=== PATIENT | male | born 1955 | race African-American/Black ===

== ENCOUNTER 2019-06-19 06:04 | Inpatient (IN) | payer MEDICAID ==
[~2019-06-19] VITALS: Ht 182.9 cm; Wt 96.5 kg
[~2019-06-19 06:04] MED LIST: NOR10T
[2019-06-19] MEDS ORDERED: METOPROLOL TARTRATE 25 MG TAB PO ONE ×2 (06:15→22:00)
[2019-06-19] MEDS ORDERED: ATORVASTATIN 20 MG TAB PO ONE (06:15)
[2019-06-19 07:23] LABS: Albumin 3.4 g/dL (3.4-5.0); Calcium 8.6 mg/dL (8.5-10.1); Potassium 3.2 mmol/L (3.5-5.1)
[2019-06-19 07:27] LABS: Basophils # (auto) 0 uL; Basophils % (auto) 0.4 % (0.0-2.0); Eosinophils # (auto) 0.2 uL; Eosinophils % (auto) 2.2 % (0.0-7.0); Hematocrit 45.6 % (41.0-53.0); Hemoglobin 15.4 g/dL (13.5-17.5); Lymphocytes # (auto) 3.1 uL; Lymphocytes % (auto) 38.1 % (10.0-50.0); Mean Corpuscular Hemoglobin 31.7 pg (28.0-32.0); Mean Corpuscular Hgb Conc. 33.6 g/dL (32.0-36.0); Mean Corpuscular Volume 94.4 fL (80.0-100.0); Monocytes % (auto) 11.9 % (0.0-12.0); Neutrophils # (auto) 3.9 uL; Neutrophils % (auto) 47.4 % (37.0-80.0); Nucleated Red Blood Cells % 0.1 %; Platelet Count (auto) 253 10^3/uL (140-450); Red Blood Cells 4.84 10^6/uL (4.5-5.90); Red Cell Distribution Width 14.4 % (11.8-14.3); White Blood Cell 8.1 10^3/uL (4.4-10.8)
[2019-06-19 07:28] LABS: Bilirubin, Total 0.3 mg/dL (0.2-1.0); Total Protein 8.2 g/dL (6.4-8.2)
[2019-06-19 07:47] LABS: INR 0.98 (0.9-1.15); Partial Thromboplastin Time 25.9 sec (23.64-32.05)
[2019-06-19] MEDS ORDERED: HEPARIN SODIUM (PORCINE) 5000 UNITS/ML 1ML VIAL IV ONE (08:15)
[2019-06-19] MEDS ORDERED: CLOPIDOGREL BISULFATE 75 MG TAB PO ONE ×2 (08:45→10:30)
[2019-06-19] MEDS ORDERED: ASPirin 325 MG TAB PO ONE (10:45)
[2019-06-19] MEDS ORDERED: TEMAZEPAM 15 MG CAP PO PRN (11:00)
[2019-06-19] MEDS ORDERED: NITROGLYCERIN 0.4 MG SL TAB SL PRN (11:00)
[2019-06-19] MEDS ORDERED: traMADol HCL 50 MG TAB PO PRN (11:00)
[2019-06-19] MEDS ORDERED: MORPHINE SULF INJ 2 MG/ML SYRINGE 1ML IV PRN (11:00)
[2019-06-19] MEDS ORDERED: ACETAMINOPHEN 500 MG TAB PO PRN (11:00)
[2019-06-19] MEDS ORDERED: LACTULOSE 20Gm/30ML SOLN PO PRN (11:00)
[2019-06-19] MEDS ORDERED: PROMETHAZINE HCL 25 MG/ML 1ML IV PRN (11:00)
[2019-06-19] MEDS: HEPARIN DRIP/D5W 100UNITS/ML 250 ML IV SCH (11:31)
[2019-06-19] MEDS: SODIUM CHLORIDE 0.9% 1,000 ML IV SCH (11:32)
[2019-06-19 12:08] LABS: INR 1.07 (0.9-1.15); Partial Thromboplastin Time 33.7 sec (23.64-32.05)
[2019-06-19] MEDS ORDERED: chlordiazePOXIDE HCL 25 MG CAP PO PRN (12:45)
[2019-06-19] MEDS ORDERED: THIAMINE 100mg/ml INJ (200mg/2ml VIAL) IV ONE (12:45)
[2019-06-19 16:46] LABS: Amphetamine Screen, Urine POSITIVE (NEGATIVE); Barbiturate Scree,Urine NEGATIVE (NEGATIVE); Benzodiazephine Screen, Urine NEGATIVE (NEGATIVE); Cannabinoid Screen, Urine NEGATIVE (NEGATIVE); Cocaine Screen, Urine POSITIVE (NEGATIVE); Opiate Scree,Urine NEGATIVE (NEGATIVE); Phencyclidine Screen, Urine NEGATIVE (NEGATIVE)
[2019-06-19] MEDS ORDERED: HEPARIN SODIUM (PORCINE) 5000 UNITS/ML 1ML VIAL ONE (17:53)
[2019-06-19] MEDS: chlordiazePOXIDE HCL 5 MG CAP PO SCH (18:03)
[2019-06-19 18:30] LABS: INR 1.07 (0.9-1.15)
[2019-06-19] MEDS ORDERED: POTASSIUM CHL 20MEQ/100ML 200 ML IV ONE (21:14)
[2019-06-19] MEDS: POTASSIUM CHL 20MEQ/100ML 100 ML IV SCH (21:23)
[2019-06-19] MEDS ORDERED: ENOXAPARIN SOD 100 MG/1 ML SYRINGE SC SCH (22:00)
[2019-06-19] MEDS: ATORVASTATIN 20 MG TAB PO SCH (22:20)
[2019-06-19 22:23] VITALS: BP 137/93
[2019-06-19 23:17] LABS: INR 1.07 (0.9-1.15)
[2019-06-19 23:30] LABS: Partial Thromboplastin Time 96.8 sec (23.64-32.05)
[2019-06-20] VITALS: BP 109/69
[2019-06-20] MEDS: chlordiazePOXIDE HCL 5 MG CAP PO SCH ×5 (00:51→23:35)
[2019-06-20] MEDS: POTASSIUM CHL 20MEQ/100ML 100 ML IV SCH (00:52)
[2019-06-20] MEDS: SODIUM CHLORIDE 0.9% 1,000 ML IV SCH ×3 (00:52→21:23)
[2019-06-20 04:00] VITALS: BP 106/70
[2019-06-20 06:11] LABS: INR 1.04 (0.9-1.15)
[2019-06-20 06:14] LABS: Albumin 2.8 g/dL (3.4-5.0); BUN/Creatinine Ratio 24.7; Bilirubin, Total 0.2 mg/dL (0.2-1.0); Calcium 8.2 mg/dL (8.5-10.1); Total Protein 6.6 g/dL (6.4-8.2)
[2019-06-20 06:37] LABS: Basophils # (auto) 0 uL; Basophils % (auto) 0.4 % (0.0-2.0); Eosinophils # (auto) 0.2 uL; Eosinophils % (auto) 2.8 % (0.0-7.0); Hematocrit 40.6 % (41.0-53.0); Hemoglobin 13.5 g/dL (13.5-17.5); Lymphocytes # (auto) 3.2 uL; Lymphocytes % (auto) 38.1 % (10.0-50.0); Mean Corpuscular Hemoglobin 31.9 pg (28.0-32.0); Mean Corpuscular Hgb Conc. 33.2 g/dL (32.0-36.0); Mean Corpuscular Volume 96.1 fL (80.0-100.0); Monocytes # (auto) 0.9 uL; Monocytes % (auto) 10.8 % (0.0-12.0); Neutrophils # (auto) 4.1 uL; Neutrophils % (auto) 47.9 % (37.0-80.0); Nucleated Red Blood Cells % 0.1 %; Platelet Count (auto) 197 10^3/uL (140-450); Red Blood Cells 4.22 10^6/uL (4.5-5.90); Red Cell Distribution Width 14.4 % (11.8-14.3); White Blood Cell 8.5 10^3/uL (4.4-10.8)
[2019-06-20 08:00] VITALS: BP 128/82
[2019-06-20] MEDS: HEPARIN DRIP/D5W 100UNITS/ML 250 ML IV SCH (10:00)
[2019-06-20] MEDS: ASPirin 81 mg TAB PO SCH (10:00)
[2019-06-20] MEDS: NITROGLYCERIN 0.2MG/HR TOPICAL PATCH TD SCH (10:00)
[2019-06-20] MEDS: CLOPIDOGREL BISULFATE 75 MG TAB PO SCH (10:01)
[2019-06-20] MEDS: METOPROLOL TARTRATE 25 MG TAB PO SCH ×2 (10:01→21:29)
[2019-06-20] MEDS: THIAMINE 100mg/ml INJ (200mg/2ml VIAL) IV SCH (10:01)
[2019-06-20 11:16] LABS: INR 1.05 (0.9-1.15); Partial Thromboplastin Time 51.8 sec (23.64-32.05)
[2019-06-20 12:00] VITALS: BP 103/63
[2019-06-20] MEDS: FOLIC ACID 1 MG, MULTIPLE VITAMIN 10 ML, MAGNESIUM SULF SDV 50% 8 MEQ, THIAMINE INJ 100... INJ SCH ×5 (13:14)
[2019-06-20 16:00] VITALS: BP 116/70
[2019-06-20 17:33] LABS: INR 1.03 (0.9-1.15)
[2019-06-20 20:00] VITALS: BP 130/81
[2019-06-20] MEDS: ATORVASTATIN 20 MG TAB PO SCH (21:23)
[2019-06-20 22:45] LABS: INR 1.05 (0.9-1.15); Partial Thromboplastin Time 52.1 sec (23.64-32.05)
[2019-06-21] VITALS (7 sets, daily range): BP systolic 105–146; BP diastolic 67–99
[2019-06-21] MEDS: chlordiazePOXIDE HCL 5 MG CAP PO SCH ×4 (05:12→23:44)
[2019-06-21] MEDS: HEPARIN DRIP/D5W 100UNITS/ML 250 ML IV SCH (05:14)
[2019-06-21 05:59] LABS: Basophils # (auto) 0 uL; Basophils % (auto) 0.4 % (0.0-2.0); Eosinophils # (auto) 0.2 uL; Eosinophils % (auto) 2.5 % (0.0-7.0); Hematocrit 38.7 % (41.0-53.0); Lymphocytes # (auto) 3.7 uL; Lymphocytes % (auto) 44.2 % (10.0-50.0); Mean Corpuscular Hemoglobin 32.1 pg (28.0-32.0); Mean Corpuscular Hgb Conc. 33.6 g/dL (32.0-36.0); Mean Corpuscular Volume 95.3 fL (80.0-100.0); Monocytes # (auto) 0.9 uL; Monocytes % (auto) 10.9 % (0.0-12.0); Neutrophils # (auto) 3.5 uL; Nucleated Red Blood Cells % 0.1 %; Platelet Count (auto) 191 10^3/uL (140-450); Red Blood Cells 4.06 10^6/uL (4.5-5.90); Red Cell Distribution Width 14.4 % (11.8-14.3); White Blood Cell 8.4 10^3/uL (4.4-10.8)
[2019-06-21 06:27] LABS: Albumin 2.7 g/dL (3.4-5.0); BUN/Creatinine Ratio 18.6; Bilirubin, Total 0.3 mg/dL (0.2-1.0); Calcium 8.1 mg/dL (8.5-10.1); Total Protein 6.5 g/dL (6.4-8.2)
[2019-06-21] MEDS ORDERED: ANGIOMAX 250 MG VIAL IV ONE (09:30)
[2019-06-21] MEDS ORDERED: SODIUM CHL 0.9% 50 ML ONE (09:31)
[2019-06-21] MEDS ORDERED: fentaNYL CITRATE 100 MCG/2 ML VL ONE (09:31)
[2019-06-21] MEDS ORDERED: LIDOCAINE 2%HCL (LOCAL ANESTH.) INJ 20ML MDV ONE (09:31)
[2019-06-21] MEDS ORDERED: IOHEXOL 350 MG/ML 100ML IJ ONE ×2 (09:31→10:44)
[2019-06-21] MEDS ORDERED: MIDAZOLAM HCL 1MG/1ML-2 ML VIAL ONE (09:31)
[2019-06-21] MEDS: CLOPIDOGREL BISULFATE 75 MG TAB PO SCH (10:00)
[2019-06-21] MEDS: ASPirin 81 mg TAB PO SCH (10:00)
[2019-06-21] MEDS ORDERED: ASPirin 81 mg TAB ONE (10:52)
[2019-06-21] MEDS ORDERED: CLOPIDOGREL BISULFATE 75 MG TAB ONE (10:52)
[2019-06-21] MEDS: METOPROLOL TARTRATE 25 MG TAB PO SCH ×2 (12:10→21:04)
[2019-06-21] MEDS: THIAMINE 100mg/ml INJ (200mg/2ml VIAL) IV SCH (12:10)
[2019-06-21] MEDS: NITROGLYCERIN 0.2MG/HR TOPICAL PATCH TD SCH (12:11)
[2019-06-21] MEDS: FOLIC ACID 1 MG, MULTIPLE VITAMIN 10 ML, MAGNESIUM SULF SDV 50% 8 MEQ, THIAMINE INJ 100... INJ SCH ×5 (12:28)
[2019-06-21] MEDS: SODIUM CHLORIDE 0.9% 1,000 ML IV SCH ×2 (16:15→21:04)
[2019-06-21] MEDS: ATORVASTATIN 20 MG TAB PO SCH (21:03)
[2019-06-22] VITALS: BP 133/95
[2019-06-22 04:00] VITALS: BP 145/88
[2019-06-22 05:32] LABS: Basophils # (auto) 0 uL; Basophils % (auto) 0.3 % (0.0-2.0); Eosinophils # (auto) 0.2 uL; Eosinophils % (auto) 1.7 % (0.0-7.0); Hematocrit 40.3 % (41.0-53.0); Hemoglobin 13.7 g/dL (13.5-17.5); Lymphocytes % (auto) 21.4 % (10.0-50.0); Mean Corpuscular Hemoglobin 32.5 pg (28.0-32.0); Mean Corpuscular Hgb Conc. 34.1 g/dL (32.0-36.0); Mean Corpuscular Volume 95.1 fL (80.0-100.0); Monocytes % (auto) 11.1 % (0.0-12.0); Neutrophils % (auto) 65.5 % (37.0-80.0); Nucleated Red Blood Cells % 0.1 %; Platelet Count (auto) 177 10^3/uL (140-450); Red Blood Cells 4.23 10^6/uL (4.5-5.90); Red Cell Distribution Width 14.3 % (11.8-14.3); White Blood Cell 9.2 10^3/uL (4.4-10.8)
[2019-06-22 05:51] LABS: Calcium 8.3 mg/dL (8.5-10.1)
[2019-06-22 05:54] LABS: BUN/Creatinine Ratio 13.9; Bilirubin, Total 0.2 mg/dL (0.2-1.0); Total Protein 7.2 g/dL (6.4-8.2)
[2019-06-22] MEDS: chlordiazePOXIDE HCL 5 MG CAP PO SCH ×4 (06:03→23:31)
[2019-06-22 07:56] VITALS: BP 120/69
[2019-06-22] MEDS: THIAMINE 100mg/ml INJ (200mg/2ml VIAL) IV SCH (09:26)
[2019-06-22] MEDS: CLOPIDOGREL BISULFATE 75 MG TAB PO SCH (09:26)
[2019-06-22] MEDS: METOPROLOL TARTRATE 25 MG TAB PO SCH ×2 (09:27→21:29)
[2019-06-22] MEDS: ASPirin 81 mg TAB PO SCH (09:27)
[2019-06-22] MEDS: NITROGLYCERIN 0.2MG/HR TOPICAL PATCH TD SCH (09:28)
[2019-06-22 12:02] VITALS: BP 118/70
[2019-06-22] MEDS: FOLIC ACID 1 MG, MULTIPLE VITAMIN 10 ML, MAGNESIUM SULF SDV 50% 8 MEQ, THIAMINE INJ 100... INJ SCH ×5 (12:38)
[2019-06-22 17:00] VITALS: BP 113/80
[2019-06-22] MEDS: SODIUM CHLORIDE 0.9% 1,000 ML IV SCH (18:55)
[2019-06-22] MEDS: ATORVASTATIN 20 MG TAB PO SCH (21:16)
[2019-06-22 22:00] VITALS: BP 104/80
[2019-06-23] MEDS: chlordiazePOXIDE HCL 5 MG CAP PO SCH (05:38)
[2019-06-23 06:29] VITALS: BP 122/74
[2019-06-23 06:35] LABS: Potassium 3.9 mmol/L (3.5-5.1)
[2019-06-23 06:41] LABS: BUN/Creatinine Ratio 18.2; Calcium 8.8 mg/dL (8.5-10.1)
[2019-06-23 09:00] VITALS: BP_SYST 111; BP_SYST 120; BP_SYST 133; BP_DIAS 60; BP_DIAS 67; BP_DIAS 70
[2019-06-23] MEDS: CLOPIDOGREL BISULFATE 75 MG TAB PO SCH (11:15)
[2019-06-23] MEDS: ASPirin 81 mg TAB PO SCH (11:16)
[2019-06-23] MEDS: METOPROLOL TARTRATE 25 MG TAB PO SCH (11:16)
[2019-06-23] MEDS: NITROGLYCERIN 0.2MG/HR TOPICAL PATCH TD SCH (11:17)
[2019-06-23] MEDS: SODIUM CHLORIDE 0.9% 1,000 ML IV SCH (11:18)
[2019-06-23] MEDS: THIAMINE 100mg/ml INJ (200mg/2ml VIAL) IV SCH (11:18)
[2019-06-23 11:33] VITALS: BP 111/60
== END 2019-06-23 12:00 | disposition home or self-care (01) | DRG 174 ==
LOC: ER 06:04 → EDBD 06:04 → TELE 06:05 → WEST WING 16:04 → TELE 16:22 → DOU IN ICU 21:50 → TELE-WESTW 06-22 12:25
PROVIDERS: ADMIT Internal Medicine; ATTEND Internal Medicine
PROC: 027034Z Dilation of Coronary Artery, One Artery with Drug-eluting Intraluminal Device, Percutaneous Approach (ICD-10-PCS; principal; 2019-06-21)
PROC: 02703ZZ Dilation of Coronary Artery, One Artery, Percutaneous Approach (ICD-10-PCS; 2019-06-21)
PROC: B2111ZZ Fluoroscopy of Multiple Coronary Arteries using Low Osmolar Contrast (ICD-10-PCS; 2019-06-21)
DX: I21.4 Non-ST elevation (NSTEMI) myocardial infarction (principal); E66.9 Obesity, unspecified; I10 Essential (primary) hypertension; F14.11 Cocaine abuse, in remission; I25.10 Atherosclerotic heart disease of native coronary artery without angina pectoris; Y90.0 Blood alcohol level of less than 20 mg/100 ml; F10.129 Alcohol abuse with intoxication, unspecified; F17.210 Nicotine dependence, cigarettes, uncomplicated; Z91.19 Patient's noncompliance with other medical treatment and regimen; Z79.82 Long term (current) use of aspirin; Z82.49 Family history of ischemic heart disease and other diseases of the circulatory system; Z98.61 Coronary angioplasty status; Z79.899 Other long term (current) drug therapy; Z68.28 Body mass index [BMI] 28.0-28.9, adult
CPT/HCPCS: 36415; 71045; 80048; 80053; 80061; 80307; 80320; 82550; 83735; 83880; 84443; 84484; 85025; 85379; 85610; 85652; 85730; 86141; 92920; 92928; 93005; 93460; 99152; 99153; 99291; C1874; G0378; J2250; J3480

== ENCOUNTER 2019-09-01 07:47 | Emergency (ER) | payer MEDICAID ==
[~2019-09-01] VITALS: Ht 182.9 cm; Wt 90.7 kg
[2019-09-01 07:58] VITALS: BP 118/74
[2019-09-01] MEDS ORDERED: IBUPROFEN 800 MG TAB PO ONE (08:30)
[2019-09-01] MEDS ORDERED: cefTRIAXone SOD 1,000 MG VL IM ONE (09:00)
== END 2019-09-01 09:29 | disposition home or self-care (01) ==
LOC: ER 07:47
DX: J02.0 Streptococcal pharyngitis (principal); F17.210 Nicotine dependence, cigarettes, uncomplicated; I25.2 Old myocardial infarction
CPT/HCPCS: 71046; 87880; 96372; 99284; J0696

== ENCOUNTER → 2021-04-24 | Outpatient (CLI) | payer MEDICARE, MEDICAID | END | disposition home or self-care (01) | LOC: Rad HDHVI 13:56 | PROVIDERS: ATTEND Internal Medicine Cardiovascular Disease | DX: R07.89 Other chest pain (principal); R06.02 Shortness of breath | CPT/HCPCS: 93306 ==

== ENCOUNTER → 2021-04-25 | Outpatient (CLI) | payer MEDICARE, MEDICAID ==
[~2021-04-25] VITALS: Ht 185.4 cm; Wt 111.1 kg
[~2021-04-25] MED LIST changes: +ADENOSINE 90 MG/30 ML INJ IV ONE; +ADENOSINE 93 MG in GIVE UN-DILUTED 0 ML IV ONE; -NOR10T
== END | disposition home or self-care (01) ==
LOC: Rad HDHVI 08:29
PROVIDERS: ATTEND Internal Medicine Cardiovascular Disease
DX: I25.10 Atherosclerotic heart disease of native coronary artery without angina pectoris (principal); I10 Essential (primary) hypertension; R06.02 Shortness of breath; F17.210 Nicotine dependence, cigarettes, uncomplicated; R42 Dizziness and giddiness; R07.89 Other chest pain; I25.2 Old myocardial infarction
CPT/HCPCS: 78452; 93005; 96374; 96375; A9500; J0153

== ENCOUNTER → 2021-05-09 | Outpatient (CLI) | payer MEDICARE, MEDICAID ==
[~2021-05-09] MED LIST changes: -ADENOSINE 90 MG/30 ML INJ IV ONE; -ADENOSINE 93 MG in GIVE UN-DILUTED 0 ML IV ONE; +HYDR-4188 PO; +MELO1TAB56 PO; +PANT40TA2 PO; +SACU1TAB PO; +SUCR1SUS5 PO
== END | disposition home or self-care (01) ==
LOC: Rad HDHVI 11:00
PROVIDERS: ATTEND Internal Medicine Cardiovascular Disease
DX: I70.203 Unspecified atherosclerosis of native arteries of extremities, bilateral legs (principal); I25.718 Atherosclerosis of autologous vein coronary artery bypass graft(s) with other forms of angina pectoris; I11.0 Hypertensive heart disease with heart failure; I50.43 Acute on chronic combined systolic (congestive) and diastolic (congestive) heart failure; I63.9 Cerebral infarction, unspecified; E11.9 Type 2 diabetes mellitus without complications; E78.5 Hyperlipidemia, unspecified
CPT/HCPCS: 93925

== ENCOUNTER → 2021-05-15 | Outpatient (CLI) | payer MEDICARE, MEDICAID ==
[2021-05-15 11:21] VITALS: BP 145/93
[2021-05-15 11:41] VITALS: BP 147/88
[2021-05-15 15:12] LABS: Basophils # (auto) 0 10 ^3/uL (0-0.2); Basophils % (auto) 0.3 % (0.0-2.0); Eosinophils # (auto) 0.1 10 ^3/uL (0-0.8); Eosinophils % (auto) 1.4 % (0.0-7.0); Hematocrit 44.3 % (41.0-53.0); Hemoglobin 14.5 g/dL (13.5-17.5); Lymphocytes # (auto) 2.3 10 ^3/uL (0.4-5.4); Lymphocytes % (auto) 27.5 % (10.0-50.0); Mean Corpuscular Hemoglobin 29.7 pg (28.0-32.0); Mean Corpuscular Hgb Conc. 32.6 g/dL (32.0-36.0); Monocytes % (auto) 11.6 % (0.0-12.0); Neutrophils % (auto) 59.2 % (37.0-80.0); Red Blood Cells 4.87 10^6/uL (4.5-5.90); Red Cell Distribution Width 15.4 % (11.8-14.3); White Blood Cell 8.5 10^3/uL (4.4-10.8)
[2021-05-15 15:27] LABS: INR 1.02 (0.9-1.15); Partial Thromboplastin Time 28.5 sec (23.6-33.0)
[2021-05-15 15:28] LABS: BUN/Creatinine Ratio 19.3; Calcium 9.1 mg/dL (8.5-10.1); Potassium 3.9 mmol/L (3.5-5.1)
== END | disposition home or self-care (01) ==
LOC: Rad HDHVI 11:01
PROVIDERS: ATTEND Internal Medicine Cardiovascular Disease
DX: Z01.812 Encounter for preprocedural laboratory examination (principal); R94.31 Abnormal electrocardiogram [ECG] [EKG]; R06.02 Shortness of breath; R07.9 Chest pain, unspecified; M79.669 Pain in unspecified lower leg; I70.0 Atherosclerosis of aorta; M47.814 Spondylosis without myelopathy or radiculopathy, thoracic region; M25.78 Osteophyte, vertebrae
CPT/HCPCS: 36415; 71046; 80048; 85025; 85610; 85730; 93005; G0463

== ENCOUNTER 2021-05-17 07:02 | Inpatient (IN) | payer MEDICARE, MEDICAID ==
[2021-05-17] VITALS (15 sets, daily range): BP systolic 92–165; BP diastolic 60–99
[~2021-05-17] VITALS: Ht 182.9 cm; Wt 116.0 kg
[2021-05-17] MEDS ORDERED: IOHEXOL 350 MG/ML 100ML IJ ONE ×6 (08:30→12:09)
[2021-05-17] MEDS ORDERED: LIDOCAINE 2%HCL (LOCAL ANESTH.) INJ 20ML MDV ONE ×2 (08:30→12:04)
[2021-05-17] MEDS ORDERED: ANGIOMAX 250 MG VIAL IV ONE ×2 (09:09→12:12)
[2021-05-17] MEDS ORDERED: SODIUM CHL 0.9% 50 ML ONE ×2 (09:10→12:12)
[2021-05-17] MEDS ORDERED: fentaNYL CITRATE 100 MCG/2 ML VL ONE ×2 (09:10→12:00)
[2021-05-17] MEDS ORDERED: MIDAZOLAM HCL 2MG/2ML 2ml VIAL (1mg/ml) ONE ×3 (09:10→12:01)
[2021-05-17] MEDS ORDERED: CLOPIDOGREL 300 MG TAB ONE (10:41)
[2021-05-17] MEDS ORDERED: ONDANSETRON HCL 4 MG/2 ML VIAL ONE (11:35)
[2021-05-17] MEDS ORDERED: ONDANSETRON HCL 4 MG/2 ML VIAL IV PRN (11:45)
[2021-05-17] MEDS ORDERED: diphenhdrAMINE HCL 50 MG/1 ML VL ONE (12:01)
[2021-05-17] MEDS ORDERED: HYDROmorphone HCL 2 MG/ML VL ONE (12:02)
[2021-05-17] MEDS ORDERED: ATROPINE SULF 1 MG/10ml SYR ONE (12:04)
[2021-05-17] MEDS ORDERED: DOPamine 1600MCG/ML D5W 250 ML IV ONE (12:06)
[2021-05-17] MEDS ORDERED: EPTIFIBATIDE INJ (2MG/ML) 10ML VIAL IV ONE (12:17)
[2021-05-17] MEDS ORDERED: EPTIFIBATIDE DRIP(0.75MG/ML) 100 ML IV ONE ×2 (12:23→17:17)
[2021-05-17] MEDS ORDERED: NITROGLYCERIN 0.4 MG SL TAB SL PRN (13:30)
[2021-05-17] MEDS ORDERED: MORPHINE SULFATE INJECTION 2 MG/ML SYRG IV PRN (13:30)
[2021-05-17] MEDS: SUCRALFATE 1 GM/10 ML ORAL SUSP PO SCH ×2 (18:14→21:34)
[2021-05-17] MEDS: EPTIFIBATIDE DRIP(0.75MG/ML) 100 ML IV SCH ×3 (18:49→23:43)
[2021-05-17 20:26] LABS: BUN/Creatinine Ratio 20.5; Calcium 8.1 mg/dL (8.5-10.1)
[2021-05-17] MEDS: SACUBITRIL-VALSARTAN 24mg/26mg TAB PO SCH (21:34)
[2021-05-17] MEDS: PANTOPRAZOLE 40 MG TAB PO SCH (21:35)
[2021-05-17] MEDS: hydrOXYchloroQUINE SULFATE 200 MG TAB PO SCH (21:35)
[2021-05-18 05:00] VITALS: BP 146/83
[2021-05-18] MEDS: SUCRALFATE 1 GM/10 ML ORAL SUSP PO SCH ×2 (05:35→12:34)
[2021-05-18] MEDS: EPTIFIBATIDE DRIP(0.75MG/ML) 100 ML IV SCH ×2 (06:41→12:50)
[2021-05-18 08:00] VITALS: BP 145/67
[2021-05-18 09:00] VITALS: BP 145/67
[2021-05-18] MEDS: PANTOPRAZOLE 40 MG TAB PO SCH (09:39)
[2021-05-18] MEDS: hydrOXYchloroQUINE SULFATE 200 MG TAB PO SCH (09:40)
[2021-05-18] MEDS ORDERED: CLOPIDOGREL BISULFATE 75 MG TAB PO SCH (10:00)
[2021-05-18] MEDS ORDERED: Meloxicam 15 MG TAB PO SCH (10:00)
[2021-05-18] MEDS ORDERED: ASPirin 81 mg TAB PO SCH (10:00)
[2021-05-18] MEDS: SACUBITRIL-VALSARTAN 24mg/26mg TAB PO SCH (11:03)
[2021-05-18 13:00] VITALS: BP 134/85
[2021-05-18 14:41] VITALS: BP 157/95
== END 2021-05-18 16:00 | disposition home or self-care (01) | DRG 175 ==
LOC: CATH 07:02 → TELE 13:18 → TELE-CENTR 17:43
PROVIDERS: ADMIT Internal Medicine Cardiovascular Disease; ATTEND Internal Medicine Cardiovascular Disease
PROC: B2111ZZ Fluoroscopy of Multiple Coronary Arteries using Low Osmolar Contrast (ICD-10-PCS; principal; 2021-05-17)
PROC: 027135Z Dilation of Coronary Artery, Two Arteries with Two Drug-eluting Intraluminal Devices, Percutaneous Approach (ICD-10-PCS; 2021-05-17)
PROC: B2151ZZ Fluoroscopy of Left Heart using Low Osmolar Contrast (ICD-10-PCS; 2021-05-17)
PROC: 02703ZZ Dilation of Coronary Artery, One Artery, Percutaneous Approach (ICD-10-PCS; 2021-05-17)
PROC: 4A023N7 Measurement of Cardiac Sampling and Pressure, Left Heart, Percutaneous Approach (ICD-10-PCS; 2021-05-17)
PROC: B3101ZZ Fluoroscopy of Thoracic Aorta using Low Osmolar Contrast (ICD-10-PCS; 2021-05-17)
DX: I25.10 Atherosclerotic heart disease of native coronary artery without angina pectoris (principal); I50.9 Heart failure, unspecified; I25.5 Ischemic cardiomyopathy; Z20.822 Contact with and (suspected) exposure to COVID-19; M06.9 Rheumatoid arthritis, unspecified; Z82.49 Family history of ischemic heart disease and other diseases of the circulatory system
CPT/HCPCS: 36415; 75605; 80048; 92920; 92928; 92929; 93005; 93458; 99152; 99153; C1874; G0378; J2250; J2405

== ENCOUNTER 2021-05-19 14:46 | Inpatient (IN) | payer MEDICARE, MEDICAID ==
[2021-05-19] VITALS (36 sets, daily range): BP systolic 59–139; BP diastolic 35–98
[~2021-05-19] VITALS: Ht 180.3 cm; Wt 123.0 kg
[2021-05-19] MEDS ORDERED: ASPirin 81 mg TAB PO ONE (15:00)
[2021-05-19] MEDS ORDERED: MORPHINE SULFATE 4 MG/ML SYR/VIAL IV ONE (15:00)
[2021-05-19] MEDS ORDERED: HEPARIN 1,000 UNITS/ml 1ML VIAL IV ONE (15:00)
[2021-05-19] MEDS ORDERED: ONDANSETRON HCL 4 MG/2 ML VIAL IV ONE (15:00)
[2021-05-19 15:04] LABS: Basophils # (auto) 0 10 ^3/uL (0-0.2); Basophils % (auto) 0.3 % (0.0-2.0); Eosinophils # (auto) 0.3 10 ^3/uL (0-0.8); Eosinophils % (auto) 3.1 % (0.0-7.0); Hematocrit 42.9 % (41.0-53.0); Hemoglobin 14.1 g/dL (13.5-17.5); Lymphocytes % (auto) 30.9 % (10.0-50.0); Monocytes # (auto) 1.4 10 ^3/uL (0-1.3); Monocytes % (auto) 15.1 % (0.0-12.0); Neutrophils # (auto) 4.8 10 ^3/uL (1.6-8.6); Neutrophils % (auto) 50.6 % (37.0-80.0); Red Blood Cells 4.74 10^6/uL (4.5-5.90); White Blood Cell 9.6 10^3/uL (4.4-10.8)
[2021-05-19 15:05] LABS: Mean Corpuscular Hemoglobin 29.8 pg (28.0-32.0); Mean Corpuscular Volume 90.5 fL (80.0-100.0); Red Cell Distribution Width 15.3 % (11.8-14.3)
[2021-05-19] MEDS ORDERED: ANGIOMAX 250 MG VIAL IV ONE ×2 (15:17→16:09)
[2021-05-19] MEDS ORDERED: HEPARIN SODIUM (PORCINE) 5000 UNITS/ML 1ML VIAL ONE (15:18)
[2021-05-19] MEDS ORDERED: SODIUM CHL 0.9% 50 ML ONE ×2 (15:18→16:09)
[2021-05-19] MEDS ORDERED: MIDAZOLAM HCL 2MG/2ML 2ml VIAL (1mg/ml) ONE (15:18)
[2021-05-19] MEDS ORDERED: VERAPAMIL 2.5MG/ML INJ 2ML VIAL IV ONE (15:18)
[2021-05-19] MEDS ORDERED: fentaNYL CITRATE 100 MCG/2 ML VL ONE (15:18)
[2021-05-19] MEDS ORDERED: IODIXANOL 320MG/ML 100ML BTL IV ONE (15:19)
[2021-05-19] MEDS ORDERED: LIDOCAINE 2%HCL (LOCAL ANESTH.) INJ 20ML MDV ONE ×2 (15:19→15:23)
[2021-05-19 15:25] LABS: Albumin 3.4 g/dL (3.4-5.0); Calcium 8.5 mg/dL (8.5-10.1); Potassium 3.3 mmol/L (3.5-5.1)
[2021-05-19 15:31] LABS: BUN/Creatinine Ratio 17.7; Bilirubin, Total 0.6 mg/dL (0.2-1.0); Total Protein 7.5 g/dL (6.4-8.2)
[2021-05-19] MEDS ORDERED: diphenhdrAMINE HCL 50 MG/1 ML VL ONE (15:38)
[2021-05-19] MEDS ORDERED: ETOMIDATE (2MG/ML) 20ML VIAL IV ONE (15:54)
[2021-05-19] MEDS ORDERED: SUCCINYLCHOLINE CHLORIDE 20 MG/ML 10ML VIAL IV ONE (15:54)
[2021-05-19] MEDS ORDERED: PROPOFOL 100 ML IV ONE (16:00)
[2021-05-19] MEDS ORDERED: ONDANSETRON HCL 4 MG/2 ML VIAL IV PRN (16:15)
[2021-05-19] MEDS ORDERED: NITROGLYCERIN 0.4 MG SL TAB SL PRN (16:15)
[2021-05-19] MEDS ORDERED: HYDROcodone-ACET 5/325MG TAB PO PRN (16:15)
[2021-05-19] MEDS ORDERED: LORazepam 0.5 MG TAB PO PRN (16:15)
[2021-05-19] MEDS ORDERED: MORPHINE SULFATE INJECTION 2 MG/ML SYRG IV PRN ×2 (16:15)
[2021-05-19] MEDS ORDERED: MIDAZOLAM DRIP 50 mg/50mL 50 ML IV ONE (16:21)
[2021-05-19] MEDS ORDERED: TICAGRELOR 90 MG TAB PO ONE (16:45)
[2021-05-19] MEDS: NOREPINEPHRINE 8 MG/250ML KIT 250 ML IV SCH (16:45)
[2021-05-19] MEDS: PROPOFOL 100 ML IV SCH ×2 (17:00→21:54)
[2021-05-19] MEDS ORDERED: MIDAZOLAM DRIP 50 mg/50mL 50 ML IV SCH (17:45)
[2021-05-19] MEDS: EPTIFIBATIDE DRIP(0.75MG/ML) 100 ML IV SCH ×2 (17:47→21:54)
[2021-05-19] MEDS ORDERED: FUROSEMIDE 40 MG/4 ML VIAL IV ONE (19:15)
[2021-05-19] MEDS ORDERED: FUROSEMIDE 40 MG/4 ML VIAL ONE (19:18)
[2021-05-19] MEDS: MIDAZOLAM DRIP 50 mg/50mL 50 ML IV SCH ×2 (19:34→21:55)
[2021-05-19] MEDS: fentaNYL Drip 2500mCg/250mlNS 250 ML IV SCH (20:32)
[2021-05-19] MEDS ORDERED: DEXTROSE (50%) 50ML SYRG IV PRN (20:45)
[2021-05-19 21:34] LABS: Basophils # (auto) 0 10 ^3/uL (0-0.2); Basophils % (auto) 0.2 % (0.0-2.0); Eosinophils # (auto) 0.1 10 ^3/uL (0-0.8); Eosinophils % (auto) 1.1 % (0.0-7.0); Hematocrit 44.3 % (41.0-53.0); Hemoglobin 14.6 g/dL (13.5-17.5); Lymphocytes # (auto) 1.4 10 ^3/uL (0.4-5.4); Lymphocytes % (auto) 14.4 % (10.0-50.0); Mean Corpuscular Hemoglobin 29.9 pg (28.0-32.0); Mean Corpuscular Volume 90.6 fL (80.0-100.0); Monocytes # (auto) 1.4 10 ^3/uL (0-1.3); Monocytes % (auto) 14.9 % (0.0-12.0); Neutrophils # (auto) 6.6 10 ^3/uL (1.6-8.6); Neutrophils % (auto) 69.4 % (37.0-80.0); Nucleated Red Blood Cells % 0.1 %; Red Blood Cells 4.88 10^6/uL (4.5-5.90); Red Cell Distribution Width 15.1 % (11.8-14.3); White Blood Cell 9.6 10^3/uL (4.4-10.8)
[2021-05-19] MEDS: InsuLIN REG 1unit/0.01ml Soln (100units/ml) SC SCH (22:00)
[2021-05-19] MEDS: ACCU-CHEK COMFORT CURVE STRIP VI SCH (22:11)
[2021-05-19] MEDS: ATORVASTATIN 20 MG TAB PO SCH (22:12)
[2021-05-20] VITALS (53 sets, daily range): BP systolic 94–114; BP diastolic 64–78
[2021-05-20] MEDS: PROPOFOL 100 ML IV SCH ×6 (01:01→23:05)
[2021-05-20] MEDS: MIDAZOLAM DRIP 50 mg/50mL 50 ML IV SCH ×2 (03:02→20:23)
[2021-05-20] MEDS: EPTIFIBATIDE DRIP(0.75MG/ML) 100 ML IV SCH (03:17)
[2021-05-20 04:45] LABS: Hemoglobin 13.7 g/dL (13.5-17.5); Mean Corpuscular Hemoglobin 29.5 pg (28.0-32.0); Mean Corpuscular Hgb Conc. 32.5 g/dL (32.0-36.0); Mean Corpuscular Volume 90.6 fL (80.0-100.0); Red Blood Cells 4.64 10^6/uL (4.5-5.90); Red Cell Distribution Width 15.2 % (11.8-14.3); White Blood Cell 9.8 10^3/uL (4.4-10.8)
[2021-05-20 05:15] LABS: Band Neutrophils % (manual) 0; Basophils % (manual) 0 (0.0-2.0); Blast Cells 0; Eosinophils % (manual) 0 (0-7); Metamyelocytes % 0; Myelocytes % 0; Promyelocytes % 0; Reactive Lymphocytes 0
[2021-05-20] MEDS: ACCU-CHEK COMFORT CURVE STRIP VI SCH ×4 (06:37→22:05)
[2021-05-20] MEDS: NOREPINEPHRINE 8 MG/250ML KIT 250 ML IV SCH ×2 (06:37→21:40)
[2021-05-20] MEDS: InsuLIN REG 1unit/0.01ml Soln (100units/ml) SC SCH ×4 (06:44→22:00)
[2021-05-20 07:24] LABS: Lymphocytes % (manual) 30 (10.0-50.0); Monocytes % (manual) 11 (0-12)
[2021-05-20] MEDS: ASPirin 81 mg TAB PO SCH (10:38)
[2021-05-20] MEDS ORDERED: DOBUTamine 1000MCG/ML 250 ML IV ONE (11:29)
[2021-05-20] MEDS: DOBUTamine 1000MCG/ML 250 ML IV SCH (12:00)
[2021-05-20 12:12] LABS: BUN/Creatinine Ratio 19.9; Calcium 7.7 mg/dL (8.5-10.1); Magnesium 2.4 mg/dL (1.6-2.6); Potassium 5.1 mmol/L (3.5-5.1)
[2021-05-20 13:12] LABS: Creatinine, Urine 279 mg/dL (30.0-125.0); Protein, Urine 192.4 mg/dL (0.0-11.9); Sodium Urine 21 mmol/L (40-220)
[2021-05-20] MEDS: TICAGRELOR 90 MG TAB GT SCH (13:38)
[2021-05-20] MEDS: fentaNYL Drip 2500mCg/250mlNS 250 ML IV SCH (19:40)
[2021-05-20 20:39] LABS: Urine Amorphous Crystal MOD /hpf (None Seen); Urine Bacteria NONE SEEN /hpf (None Seen); Urine Blood 3+ /uL (Negative); Urine Specific Gravity 1.037 (1.001-1.035); Urine WBC 40 /hpf (0 - 3)
[2021-05-20] MEDS ORDERED: TICAGRELOR 90 MG TAB GT SCH (22:00)
[2021-05-20] MEDS: ATORVASTATIN 20 MG TAB PO SCH (22:05)
[2021-05-21] VITALS (59 sets, daily range): BP systolic 85–132; BP diastolic 63–91
[2021-05-21] MEDS: TICAGRELOR 90 MG TAB GT SCH (00:30)
[2021-05-21] MEDS: MIDAZOLAM DRIP 50 mg/50mL 50 ML IV SCH ×2 (00:59→07:37)
[2021-05-21 05:17] LABS: Calcium 7.7 mg/dL (8.5-10.1); Potassium 4.3 mmol/L (3.5-5.1)
[2021-05-21] MEDS: InsuLIN REG 1unit/0.01ml Soln (100units/ml) SC SCH ×3 (07:36→22:00)
[2021-05-21] MEDS: ACCU-CHEK COMFORT CURVE STRIP VI SCH ×3 (07:36→22:00)
[2021-05-21] MEDS: PROPOFOL 100 ML IV SCH ×2 (09:56→13:55)
[2021-05-21] MEDS: ASPirin 81 mg TAB PO SCH (11:59)
[2021-05-21] MEDS: DOBUTamine 1000MCG/ML 250 ML IV SCH (16:06)
[2021-05-21] MEDS: fentaNYL Drip 2500mCg/250mlNS 250 ML IV SCH (20:00)
[2021-05-21] MEDS: ATORVASTATIN 20 MG TAB PO SCH (22:00)
[2021-05-22] VITALS (74 sets, daily range): BP systolic 92–121; BP diastolic 55–81
[2021-05-22] MEDS: TICAGRELOR 90 MG TAB GT SCH ×2 (00:15→12:39)
[2021-05-22] MEDS: DOBUTamine 1000MCG/ML 250 ML IV SCH ×2 (03:00→22:57)
[2021-05-22 04:53] LABS: Basophils # (auto) 0 10 ^3/uL (0-0.2); Basophils % (auto) 0.2 % (0.0-2.0); Eosinophils # (auto) 0.1 10 ^3/uL (0-0.8); Eosinophils % (auto) 0.7 % (0.0-7.0); Hematocrit 34.1 % (41.0-53.0); Hemoglobin 11.5 g/dL (13.5-17.5); Lymphocytes # (auto) 0.9 10 ^3/uL (0.4-5.4); Lymphocytes % (auto) 11.5 % (10.0-50.0); Mean Corpuscular Hemoglobin 30.1 pg (28.0-32.0); Mean Corpuscular Hgb Conc. 33.7 g/dL (32.0-36.0); Mean Corpuscular Volume 89.4 fL (80.0-100.0); Monocytes # (auto) 1.3 10 ^3/uL (0-1.3); Monocytes % (auto) 16.5 % (0.0-12.0); Neutrophils # (auto) 5.5 10 ^3/uL (1.6-8.6); Neutrophils % (auto) 71.1 % (37.0-80.0); Nucleated Red Blood Cells % 0.1 %; Red Blood Cells 3.81 10^6/uL (4.5-5.90); White Blood Cell 7.8 10^3/uL (4.4-10.8)
[2021-05-22 05:11] LABS: Calcium 7.7 mg/dL (8.5-10.1); Potassium 4.2 mmol/L (3.5-5.1)
[2021-05-22 05:13] LABS: BUN/Creatinine Ratio 21.7
[2021-05-22] MEDS: InsuLIN REG 1unit/0.01ml Soln (100units/ml) SC SCH ×4 (06:58→21:46)
[2021-05-22] MEDS: ACCU-CHEK COMFORT CURVE STRIP VI SCH ×4 (06:59→21:07)
[2021-05-22] MEDS: PROPOFOL 100 ML IV SCH ×4 (07:42→20:47)
[2021-05-22] MEDS: ASPirin 81 mg TAB PO SCH (10:08)
[2021-05-22] MEDS: PANTOPRAZOLE 40 MG/10 ML VIAL INJ IV SCH (10:08)
[2021-05-22] MEDS: ACETAMINOPHEN 325 MG TAB PO PRN (12:39)
[2021-05-22] MEDS: CEFEPIME 1 GM in SODIUM CHL 0.9% 50 ML IV SCH ×2 (14:54→20:53)
[2021-05-22] MEDS: NOREPINEPHRINE 8 MG/250ML KIT 250 ML IV SCH (16:45)
[2021-05-22] MEDS: MIDAZOLAM DRIP 50 mg/50mL 50 ML IV SCH (17:45)
[2021-05-22] MEDS: fentaNYL Drip 2500mCg/250mlNS 250 ML IV SCH (17:45)
[2021-05-22] MEDS: ATORVASTATIN 20 MG TAB PO SCH (21:07)
[2021-05-23] VITALS (101 sets, daily range): BP systolic 88–129; BP diastolic 63–96
[2021-05-23] MEDS: TICAGRELOR 90 MG TAB GT SCH ×2 (00:42→12:20)
[2021-05-23] MEDS: PROPOFOL 100 ML IV SCH ×7 (00:43→23:51)
[2021-05-23 04:38] LABS: Basophils # (auto) 0 10 ^3/uL (0-0.2); Basophils % (auto) 0.2 % (0.0-2.0); Eosinophils # (auto) 0.1 10 ^3/uL (0-0.8); Hematocrit 33.8 % (41.0-53.0); Hemoglobin 11.3 g/dL (13.5-17.5); Lymphocytes # (auto) 1.4 10 ^3/uL (0.4-5.4); Lymphocytes % (auto) 17.2 % (10.0-50.0); Mean Corpuscular Hemoglobin 30.3 pg (28.0-32.0); Mean Corpuscular Hgb Conc. 33.5 g/dL (32.0-36.0); Mean Corpuscular Volume 90.4 fL (80.0-100.0); Monocytes # (auto) 1.2 10 ^3/uL (0-1.3); Monocytes % (auto) 14.3 % (0.0-12.0); Neutrophils # (auto) 5.6 10 ^3/uL (1.6-8.6); Neutrophils % (auto) 67.3 % (37.0-80.0); Nucleated Red Blood Cells % 0.3 %; Red Blood Cells 3.74 10^6/uL (4.5-5.90); Red Cell Distribution Width 15.2 % (11.8-14.3); White Blood Cell 8.4 10^3/uL (4.4-10.8)
[2021-05-23] MEDS: NOREPINEPHRINE 8 MG/250ML KIT 250 ML IV SCH (04:50)
[2021-05-23 04:54] LABS: Potassium 4.1 mmol/L (3.5-5.1)
[2021-05-23 05:01] LABS: Albumin 2.7 g/dL (3.4-5.0); BUN/Creatinine Ratio 23.2; Bilirubin, Total 0.4 mg/dL (0.2-1.0); Calcium 7.5 mg/dL (8.5-10.1); Phosphorus 3.6 mg/dL (2.5-4.90); Total Protein 6.5 g/dL (6.4-8.2)
[2021-05-23] MEDS: CEFEPIME 1 GM in SODIUM CHL 0.9% 50 ML IV SCH ×3 (05:42→22:00)
[2021-05-23] MEDS: ACCU-CHEK COMFORT CURVE STRIP VI SCH ×4 (06:18→22:00)
[2021-05-23] MEDS: InsuLIN REG 1unit/0.01ml Soln (100units/ml) SC SCH ×4 (06:37→22:00)
[2021-05-23] MEDS: ASPirin 81 mg TAB PO SCH (08:58)
[2021-05-23] MEDS: PANTOPRAZOLE 40 MG/10 ML VIAL INJ IV SCH (08:58)
[2021-05-23] MEDS: AZITHROMYCIN 500MG/ 250ML 250 ML IV SCH (08:58)
[2021-05-23] MEDS: DOBUTamine 1000MCG/ML 250 ML IV SCH (11:00)
[2021-05-23] MEDS: fentaNYL Drip 2500mCg/250mlNS 250 ML IV SCH (17:45)
[2021-05-23] MEDS: MIDAZOLAM DRIP 50 mg/50mL 50 ML IV SCH (17:45)
[2021-05-23] MEDS: ATORVASTATIN 20 MG TAB PO SCH (22:00)
[2021-05-24] VITALS (86 sets, daily range): BP systolic 81–123; BP diastolic 57–84
[2021-05-24] MEDS: TICAGRELOR 90 MG TAB GT SCH ×2 (00:24→12:15)
[2021-05-24] MEDS: DOBUTamine 1000MCG/ML 250 ML IV SCH ×3 (01:18→17:10)
[2021-05-24] MEDS: AMIODARONE 450mg/250ml AE 250 ML IV SCH (01:30)
[2021-05-24 04:37] LABS: Basophils # (auto) 0 10 ^3/uL (0-0.2); Basophils % (auto) 0.4 % (0.0-2.0); Eosinophils # (auto) 0.1 10 ^3/uL (0-0.8); Eosinophils % (auto) 0.8 % (0.0-7.0); Hematocrit 33.6 % (41.0-53.0); Hemoglobin 11.4 g/dL (13.5-17.5); Lymphocytes # (auto) 1.4 10 ^3/uL (0.4-5.4); Lymphocytes % (auto) 15.2 % (10.0-50.0); Mean Corpuscular Hemoglobin 30.4 pg (28.0-32.0); Mean Corpuscular Hgb Conc. 33.8 g/dL (32.0-36.0); Mean Corpuscular Volume 89.9 fL (80.0-100.0); Monocytes # (auto) 1.1 10 ^3/uL (0-1.3); Monocytes % (auto) 12.8 % (0.0-12.0); Neutrophils # (auto) 6.3 10 ^3/uL (1.6-8.6); Neutrophils % (auto) 70.8 % (37.0-80.0); Nucleated Red Blood Cells % 0.2 %; Red Blood Cells 3.74 10^6/uL (4.5-5.90); Red Cell Distribution Width 14.6 % (11.8-14.3); White Blood Cell 8.9 10^3/uL (4.4-10.8)
[2021-05-24 04:48] LABS: Calcium 7.3 mg/dL (8.5-10.1); Magnesium 2.8 mg/dL (1.6-2.6); Potassium 4.2 mmol/L (3.5-5.1)
[2021-05-24 04:51] LABS: BUN/Creatinine Ratio 27.4
[2021-05-24] MEDS: PROPOFOL 100 ML IV SCH ×3 (04:58→22:57)
[2021-05-24] MEDS: ACCU-CHEK COMFORT CURVE STRIP VI SCH ×4 (05:35→22:00)
[2021-05-24] MEDS: CEFEPIME 1 GM in SODIUM CHL 0.9% 50 ML IV SCH ×3 (05:35→22:46)
[2021-05-24] MEDS: InsuLIN REG 1unit/0.01ml Soln (100units/ml) SC SCH ×4 (05:36→22:48)
[2021-05-24] MEDS ORDERED: FUROSEMIDE 40 MG/4 ML VIAL IV ONE (09:45)
[2021-05-24] MEDS: PANTOPRAZOLE 40 MG/10 ML VIAL INJ IV SCH (10:00)
[2021-05-24] MEDS: ASPirin 81 mg TAB PO SCH (10:00)
[2021-05-24] MEDS: AZITHROMYCIN 500MG/ 250ML 250 ML IV SCH (10:00)
[2021-05-24] MEDS: NOREPINEPHRINE 8 MG/250ML KIT 250 ML IV SCH (16:45)
[2021-05-24] MEDS: fentaNYL Drip 2500mCg/250mlNS 250 ML IV SCH (17:45)
[2021-05-24] MEDS: MIDAZOLAM DRIP 50 mg/50mL 50 ML IV SCH ×2 (17:45→22:59)
[2021-05-24] MEDS ORDERED: AMIODARONE 450mg/250ml AE 250 ML IV ONE (22:09)
[2021-05-24] MEDS ORDERED: AMIODARONE HCL (50 MG/ ML) 3 ML VIAL IV ONE (22:09)
[2021-05-24] MEDS: ATORVASTATIN 20 MG TAB PO SCH (23:02)
[2021-05-24] MEDS ORDERED: AMIODARONE HCL 150 MG in D5W 5% 100 ML IV ONE (23:45)
[2021-05-25] VITALS (91 sets, daily range): BP systolic 62–120; BP diastolic 46–74
[2021-05-25] MEDS ORDERED: AMIODARONE 450mg/250ml AE 250 ML IV SCH
[2021-05-25] MEDS: TICAGRELOR 90 MG TAB GT SCH ×2 (00:11→12:15)
[2021-05-25] MEDS ORDERED: METOPROLOL TARTRATE 50 MG TAB NG ONE (00:30)
[2021-05-25] MEDS: PROPOFOL 100 ML IV SCH ×3 (01:19→22:22)
[2021-05-25] MEDS: MIDAZOLAM DRIP 50 mg/50mL 50 ML IV SCH ×5 (01:20→19:59)
[2021-05-25] MEDS: NOREPINEPHRINE 8 MG/250ML KIT 250 ML IV SCH ×2 (02:59→07:57)
[2021-05-25] MEDS: ACCU-CHEK COMFORT CURVE STRIP VI SCH ×4 (05:29→21:51)
[2021-05-25] MEDS: CEFEPIME 1 GM in SODIUM CHL 0.9% 50 ML IV SCH ×3 (05:30→21:51)
[2021-05-25] MEDS: InsuLIN REG 1unit/0.01ml Soln (100units/ml) SC SCH ×4 (05:31→21:48)
[2021-05-25] MEDS: AMIODARONE 450mg/250ml AE 250 ML IV SCH (08:00)
[2021-05-25 09:27] LABS: Basophils # (auto) 0 10 ^3/uL (0-0.2); Basophils % (auto) 0.3 % (0.0-2.0); Eosinophils # (auto) 0 10 ^3/uL (0-0.8); Eosinophils % (auto) 0.1 % (0.0-7.0); Hematocrit 36.9 % (41.0-53.0); Hemoglobin 12.3 g/dL (13.5-17.5); Lymphocytes # (auto) 1.5 10 ^3/uL (0.4-5.4); Lymphocytes % (auto) 19.2 % (10.0-50.0); Mean Corpuscular Hemoglobin 29.9 pg (28.0-32.0); Mean Corpuscular Hgb Conc. 33.4 g/dL (32.0-36.0); Mean Corpuscular Volume 89.3 fL (80.0-100.0); Monocytes # (auto) 1.2 10 ^3/uL (0-1.3); Monocytes % (auto) 15.5 % (0.0-12.0); Neutrophils # (auto) 5.1 10 ^3/uL (1.6-8.6); Neutrophils % (auto) 64.9 % (37.0-80.0); Nucleated Red Blood Cells % 0.7 %; Red Blood Cells 4.13 10^6/uL (4.5-5.90); Red Cell Distribution Width 14.7 % (11.8-14.3); White Blood Cell 7.8 10^3/uL (4.4-10.8)
[2021-05-25 09:45] LABS: BUN/Creatinine Ratio 18.7; Calcium 7.3 mg/dL (8.5-10.1); Potassium 5.1 mmol/L (3.5-5.1)
[2021-05-25] MEDS: FUROSEMIDE 40 MG/4 ML VIAL IV SCH (09:49)
[2021-05-25] MEDS: ASPirin 81 mg TAB PO SCH (09:50)
[2021-05-25] MEDS: PANTOPRAZOLE 40 MG/10 ML VIAL INJ IV SCH (09:50)
[2021-05-25] MEDS: AZITHROMYCIN 500MG/ 250ML 250 ML IV SCH (09:50)
[2021-05-25] MEDS: DOBUTamine 1000MCG/ML 250 ML IV SCH ×2 (12:00→20:12)
[2021-05-25] MEDS: NOREPINEPHRINE BITARTRATE 16 MG in SODIUM CHL 0.9% 234 ML IV SCH ×2 (13:00→22:20)
[2021-05-25 17:03] LABS: Creatinine, Urine 208 mg/dL (30.0-125.0); Sodium Urine < 5 mmol/L (40-220)
[2021-05-25] MEDS: fentaNYL Drip 2500mCg/250mlNS 250 ML IV SCH (17:45)
[2021-05-25] MEDS: ATORVASTATIN 20 MG TAB PO SCH (21:50)
[2021-05-26] VITALS (97 sets, daily range): BP systolic 77–104; BP diastolic 39–66
[2021-05-26] MEDS: TICAGRELOR 90 MG TAB GT SCH ×2 (00:09→12:40)
[2021-05-26] MEDS: ACETAMINOPHEN 325 MG TAB PO PRN (00:26)
[2021-05-26] MEDS: PROPOFOL 100 ML IV SCH ×3 (05:17→15:39)
[2021-05-26] MEDS: NOREPINEPHRINE BITARTRATE 16 MG in SODIUM CHL 0.9% 234 ML IV SCH (05:17)
[2021-05-26] MEDS: CEFEPIME 1 GM in SODIUM CHL 0.9% 50 ML IV SCH (05:42)
[2021-05-26] MEDS: ACCU-CHEK COMFORT CURVE STRIP VI SCH ×4 (05:50→22:00)
[2021-05-26] MEDS: InsuLIN REG 1unit/0.01ml Soln (100units/ml) SC SCH ×4 (05:51→22:00)
[2021-05-26] MEDS: FUROSEMIDE 40 MG/4 ML VIAL IV SCH (10:24)
[2021-05-26] MEDS: PANTOPRAZOLE 40 MG/10 ML VIAL INJ IV SCH (10:31)
[2021-05-26] MEDS: AZITHROMYCIN 500MG/ 250ML 250 ML IV SCH (10:31)
[2021-05-26] MEDS: ASPirin 81 mg TAB PO SCH (10:31)
[2021-05-26] MEDS: DOBUTamine 1000MCG/ML 250 ML IV SCH (10:32)
[2021-05-26] MEDS: MIDAZOLAM DRIP 50 mg/50mL 50 ML IV SCH ×3 (11:04→18:29)
[2021-05-26] MEDS: EPINEPHrine HCL INJECTION 8 MG in D5W 5% 242 ML IV SCH ×2 (11:30→23:00)
[2021-05-26] MEDS: PIPERACILLIN-TAZO 4.5GM 100 ML IV SCH (14:00)
[2021-05-26] MEDS: NOREPINEPHRINE BITARTRATE 32 MG in SODIUM CHL 0.9% 218 ML IV SCH (14:27)
[2021-05-26] MEDS: AMIODARONE 450mg/250ml AE 250 ML IV SCH (14:27)
[2021-05-26 15:48] LABS: Basophils # (auto) 0 10 ^3/uL (0-0.2); Eosinophils # (auto) 0 10 ^3/uL (0-0.8); Hematocrit 34.3 % (41.0-53.0); Hemoglobin 11.6 g/dL (13.5-17.5); Mean Corpuscular Hgb Conc. 33.7 g/dL (32.0-36.0); Red Cell Distribution Width 14.6 % (11.8-14.3)
[2021-05-26 15:57] LABS: Basophils % (auto) 0.5 % (0.0-2.0); Eosinophils % (auto) 0.1 % (0.0-7.0); Lymphocytes # (auto) 1.1 10 ^3/uL (0.4-5.4); Mean Corpuscular Hemoglobin 30.3 pg (28.0-32.0); Mean Corpuscular Volume 89.9 fL (80.0-100.0); Monocytes # (auto) 1.2 10 ^3/uL (0-1.3); Monocytes % (auto) 12.5 % (0.0-12.0); Neutrophils # (auto) 7.6 10 ^3/uL (1.6-8.6); Neutrophils % (auto) 75.9 % (37.0-80.0); Nucleated Red Blood Cells % 2.7 %; Red Blood Cells 3.81 10^6/uL (4.5-5.90)
[2021-05-26 16:31] LABS: Sodium 130 mmol/L (136-145)
[2021-05-26 16:32] LABS: Anion Gap 13 (5-15); BUN/Creatinine Ratio 17.6; Blood Urea Nitrogen 63 mg/dL (7-18); Calcium 6.8 mg/dL (8.5-10.1); Carbon Dioxide 20 mmol/L (21-32); Chloride 97 mmol/L (98-107); GFR African American 22 mL/min; GFR Non-African American 18 mL/min; Glucose 122 mg/dL (74-106)
[2021-05-26 16:34] LABS: Potassium 6.2 mmol/L (3.5-5.1)
[2021-05-26] MEDS ORDERED: BUMETANIDE 2.5mg/10ml (0.25 mg/ml) INJ IV ONE (17:45)
[2021-05-26] MEDS ORDERED: InsuLIN REG 1unit/0.01ml Soln (100units/ml) IV ONE (17:45)
[2021-05-26] MEDS ORDERED: CALCIUM GLUC 1,000mg/50ml-NS 50 ML IV ONE (17:45)
[2021-05-26] MEDS ORDERED: DEXTROSE (50%) 50ML SYRG IV ONE (17:45)
[2021-05-26] MEDS: fentaNYL Drip 2500mCg/250mlNS 250 ML IV SCH (17:45)
[2021-05-26] MEDS ORDERED: SODIUM ZIRCONIUM CYCL 10 GM PAK PO ONE (22:00)
[2021-05-26] MEDS: ATORVASTATIN 20 MG TAB PO SCH (22:00)
[2021-05-26] MEDS ORDERED: EPINEPHrine HCL 250 ML IV ONE ×2 (23:22→23:24)
[2021-05-26] MEDS ORDERED: PIPERACILLIN-TAZO 4.5GM 200 ML IV ONE (23:54)
[2021-05-27] VITALS (57 sets, daily range): BP systolic 69–97; BP diastolic 36–58
[2021-05-27] MEDS: TICAGRELOR 90 MG TAB GT SCH (00:15)
[2021-05-27] MEDS: PIPERACILLIN-TAZO 4.5GM 100 ML IV SCH ×2 (00:31→06:00)
[2021-05-27] MEDS: MIDAZOLAM DRIP 50 mg/50mL 50 ML IV SCH ×3 (01:00→08:48)
[2021-05-27] MEDS: DOBUTamine 1000MCG/ML 250 ML IV SCH (02:00)
[2021-05-27 03:59] LABS: Basophils # (auto) 0 10 ^3/uL (0-0.2); Basophils % (auto) 0.4 % (0.0-2.0); Eosinophils # (auto) 0.1 10 ^3/uL (0-0.8); Eosinophils % (auto) 0.7 % (0.0-7.0); Hematocrit 33.2 % (41.0-53.0); Hemoglobin 10.9 g/dL (13.5-17.5); Lymphocytes # (auto) 1.3 10 ^3/uL (0.4-5.4); Lymphocytes % (auto) 12.6 % (10.0-50.0); Mean Corpuscular Hemoglobin 29.4 pg (28.0-32.0); Mean Corpuscular Hgb Conc. 32.9 g/dL (32.0-36.0); Mean Corpuscular Volume 89.5 fL (80.0-100.0); Monocytes # (auto) 1.2 10 ^3/uL (0-1.3); Monocytes % (auto) 11.6 % (0.0-12.0); Neutrophils # (auto) 7.9 10 ^3/uL (1.6-8.6); Neutrophils % (auto) 74.7 % (37.0-80.0); Nucleated Red Blood Cells % 3.7 %; Red Blood Cells 3.71 10^6/uL (4.5-5.90); Red Cell Distribution Width 14.8 % (11.8-14.3); White Blood Cell 10.5 10^3/uL (4.4-10.8)
[2021-05-27 04:08] LABS: Albumin 2.2 g/dL (3.4-5.0); BUN/Creatinine Ratio 15.6; Calcium 6.8 mg/dL (8.5-10.1)
[2021-05-27 04:18] LABS: Bilirubin, Total 1.2 mg/dL (0.2-1.0); Total Protein 6.6 g/dL (6.4-8.2)
[2021-05-27 05:00] LABS: Potassium 6.4 mmol/L (3.5-5.1)
[2021-05-27] MEDS ORDERED: InsuLIN REG 1unit/0.01ml Soln (100units/ml) IV ONE (05:30)
[2021-05-27] MEDS ORDERED: DEXTROSE (50%) 50ML SYRG IV ONE (05:30)
[2021-05-27] MEDS ORDERED: CALCIUM GLUC 1,000mg/50ml-NS 50 ML IV ONE ×2 (05:30→05:41)
[2021-05-27] MEDS ORDERED: SODIUM CHLORIDE 0.9% 500 ML IV ONE (06:30)
[2021-05-27] MEDS ORDERED: PHENYLEPHRINE IV 250 ML IV SCH (06:30)
[2021-05-27] MEDS: PROPOFOL 100 ML IV SCH ×2 (08:21)
[2021-05-27] MEDS: NOREPINEPHRINE BITARTRATE 32 MG in SODIUM CHL 0.9% 218 ML IV SCH (08:23)
[2021-05-27 08:25] LABS: Magnesium 3.6 mg/dL (1.6-2.6)
[2021-05-27] MEDS: InsuLIN REG 1unit/0.01ml Soln (100units/ml) SC SCH (08:29)
[2021-05-27 08:38] LABS: Phosphorus 11.2 mg/dL (2.5-4.90)
[2021-05-27] MEDS: PANTOPRAZOLE 40 MG/10 ML VIAL INJ IV SCH (11:09)
[2021-05-27] MEDS: AZITHROMYCIN 500MG/ 250ML 250 ML IV SCH (11:10)
== END 2021-05-27 14:56 | DRG 710 ==
LOC: ER 14:46 → EDSEX 14:46 → EDBD 14:46 → TELE 16:18 → ICU WEST 16:46
PROVIDERS: ADMIT Family Medicine; ATTEND Internal Medicine Cardiovascular Disease
PROC: 5A1955Z Respiratory Ventilation, Greater than 96 Consecutive Hours (ICD-10-PCS; principal; 2021-05-19)
PROC: 02703ZZ Dilation of Coronary Artery, One Artery, Percutaneous Approach (ICD-10-PCS; 2021-05-19)
PROC: 0BH17EZ Insertion of Endotracheal Airway into Trachea, Via Natural or Artificial Opening (ICD-10-PCS; 2021-05-19)
PROC: B211YZZ Fluoroscopy of Multiple Coronary Arteries using Other Contrast (ICD-10-PCS; 2021-05-19)
PROC: B41CYZZ Fluoroscopy of Pelvic Arteries using Other Contrast (ICD-10-PCS; 2021-05-19)
DX: A41.9 Sepsis, unspecified organism (principal); J96.01 Acute respiratory failure with hypoxia; I46.9 Cardiac arrest, cause unspecified; N17.0 Acute kidney failure with tubular necrosis; I21.4 Non-ST elevation (NSTEMI) myocardial infarction; G93.41 Metabolic encephalopathy; I50.21 Acute systolic (congestive) heart failure; I73.9 Peripheral vascular disease, unspecified; E87.6 Hypokalemia; R73.9 Hyperglycemia, unspecified; E78.5 Hyperlipidemia, unspecified; D68.59 Other primary thrombophilia; E87.5 Hyperkalemia; E66.2 Morbid (severe) obesity with alveolar hypoventilation; I13.0 Hypertensive heart and chronic kidney disease with heart failure and stage 1 through stage 4 chronic kidney disease, or unspecified chronic kidney disease; N18.9 Chronic kidney disease, unspecified; Z66 Do not resuscitate; F17.210 Nicotine dependence, cigarettes, uncomplicated; I25.10 Atherosclerotic heart disease of native coronary artery without angina pectoris; I25.5 Ischemic cardiomyopathy; Z82.0 Family history of epilepsy and other diseases of the nervous system; Z91.19 Patient's noncompliance with other medical treatment and regimen; Z68.35 Body mass index [BMI] 35.0-35.9, adult; I25.2 Old myocardial infarction; R57.0 Cardiogenic shock
CPT/HCPCS: 36415; 36600; 71045; 75710; 80048; 80053; 81001; 82570; 82805; 82962; 83735; 84100; 84156; 84300; 84484; 85007; 85025; 85027; 86850; 86900; 86901; 87070; 87077; 87081; 87205; 87426; 92920; 93005; 93306; 93454; 94003; 94640; 96374; 96375; 99152; 99153; C9113; G0378; J0171; J0330; J2250; J2405; J2543; J2704; J7060; Q9967